=== PATIENT | female | born 1980 | race Caucasian/White ===

== ENCOUNTER → 2016-09-04 | Outpatient (CLI) | payer BC ==
[~2016-09-04] MED LIST: ADIPEX-P37.5 M1 PO; CALCIUM CARBONATE; CELEXA 20MG20 MG/TAB PO; IBU800 M1 PO; MAALOX ANTACID1 TAB PO; MOTRIN 800800 MG/TAB PO; NORCO 325 MG-7.1 TAB PO; PERCOCET 325 MG1 TA2 PO; PHENERGAN 25 TA25 MG PO; PHENERGAN25 MG RC; PNV-SELECT1 TAB PO; PRENATAL1 TA7 PO; PRILOSEC 20MG20 MG PO; PRILOTC; VALTREX 50500 MG/TAB PO; ZANTAC 7575 MG; ZOFRAN ODT4 MG PO
== END ==
LOC: COL.RAD 11:30
DX: R10.2 Pelvic and perineal pain (principal)

== ENCOUNTER → 2021-12-27 | Outpatient (CLI) | payer OTHER | LOC: MC.RAD 09:54 | DX: N63.10 Unspecified lump in the right breast, unspecified quadrant (principal); N63.32 Unspecified lump in axillary tail of the left breast ==

== ENCOUNTER → 2022-01-02 | Outpatient (CLI) | payer OTHER | LOC: MC.RAD 09:52 | DX: N63.10 Unspecified lump in the right breast, unspecified quadrant (principal); R92.8 Other abnormal and inconclusive findings on diagnostic imaging of breast ==